=== PATIENT | male | born 1960 | race Caucasian/White ===

== ENCOUNTER 2017-03-08 07:22 | Emergency (ER) | payer BC ==
--- NOTE | ~2017-03-08 | ER ---
PATIENT'S NAME: BERT GUERRA [facility] AGE: 57 Y [address] ROOM: [place] [id number] LOCATION: [facility] ADMIT DATE: 03/08/2017 ER/Outpatient Report DISCHARGE DATE: 03/08/2017 FAMILY PHYSICIAN: PHYSICIAN, NO ATTENDING PHYSICIAN: Jennifer Angelo Admission date and time documented on the medical record. I saw the patient at 0735 hours. CHIEF COMPLAINT: Stress, intermittent episodes of chest tightness. HISTORY OF PRESENT ILLNESS: This patient is a 57-year-old male from [place], traveling to [place] by ground with his son. He has been really stressed at work and with his family. His diagnosed with a brain tumor. He is little bit over senior living to his destination and he is going to fly back to [place] on Thursday of this coming week. Yesterday, while driving, he had three episodes of tingling in his arms, cold sweats, and then chest tightness. These episodes lasted a couple minutes and went away. He had an episode again this morning with cold sweat, tingling down his arms and mid to lower substernal chest tightness. He had no nausea or vomiting. No shortness of breath. No lightheadedness or dizziness. The patient states that these times he is getting overwhelmed with stress and anxiety, almost brings himself to tears. He also gets some frontal facial fullness. The patient has had no previous history of known coronary artery disease, pulmonary disease, valvular heart disease, and congestive failure. Does have a history of hypertension. He has had some episodes in the past. He has been stressed and had similar symptoms. He has a family history of valvular heart disease, but no coronary artery disease. His father had a valve replacement. Also, has diabetes mellitus type 2. No recent coughs, colds, flus, fever, chills, or sweats. No fall or trauma. No syncope. No abdominal pain, nausea, vomiting, diarrhea, or urinary frequency, urgency, or dysuria. No joint muscle swelling, redness, or pain. No skin eruptions or rash. No history of neuro changes, psych issues, or endocrine problems, other than the stress and anxiety from situational changes in his life. HOME MEDICATIONS: See attached medication list. ALLERGIES: NONE. SOCIAL HISTORY: Nonsmoker. Occasional intake of alcohol. PATIENT'S NAME: BERT GUERRA [facility] AGE: 57 Y [address] ROOM: [place], [place] [address] LOCATION: [facility] ADMIT DATE: 03/08/2017 ER/Outpatient Report DISCHARGE DATE: 03/08/2017 FAMILY PHYSICIAN: PHYSICIAN, NO ATTENDING PHYSICIAN: Jennifer Angelo SIGNIFICANT PAST MEDICAL HISTORY: Hypertension, stress, and anxiety. OPERATIONS: Appendectomy. REVIEW OF SYSTEMS: All systems reviewed by me are negative with the exception of those discussed in the history of present illness. PHYSICAL EXAMINATION: VITAL SIGNS: Pulse 67 and regular, respirations 18, blood pressure 158/93, O2 saturation on room air 97%. HEAD: Normocephalic. EYES: Extraocular muscles intact. PERRL. EARS, NOSE, THROAT: Clear. Mucous membranes moist. NECK: No nuchal rigidity. No thyromegaly or cervical adenopathy. LUNGS: Clear. Good air flow. No rales, rhonchi, or wheezes. HEART: Regular. Pulses are palpable. No chest wall or ribcage pain to palpation. ABDOMEN: Soft, nondistended, nontender. Good bowel tones. No organomegaly or abnormal mass palpable. No CVA tenderness. EXTREMITIES: Intact. NEUROVASCULAR: Intact. SKIN: Clear. No skin eruptions or rash. EMERGENCY DEPARTMENT COURSE: I did give the patient 4 baby aspirin and started an IV saline lock. EKG showed sinus rhythm. No acute ST elevation, ischemic change, or arrhythmia. Chest x-ray showed no acute infiltrate or changes. We will review x-ray with the radiologist. White count was 8,400, 72 segs, 18 lymphs, 8 monos, 1 eo, 1 baso. Hemoglobin is 14.7, hematocrit 40.9, platelet count is 286,000. CMS was normal except for a slightly low sodium 133, low potassium of 2.9, elevated glucose 117, magnesium was 2.1. CPK was 60. Uawad-nz-buti cardiac enzymes were normal. Pro-time is 10.6 with an INR 1.01. PTT was 29. IMPRESSION: 1. Transient episodes of cold sweats, numbness and tingling in his arms, followed by mid low substernal chest tightness. These episodes lasted a couple minutes then resolved. I find no evidence of cardiac changes on his workup. He does admit that he is under lot of stress at his work and in his home with his having a brain tumor, just diagnosed. I think that this all is related to stress and anxiety. PATIENT'S NAME: BERT GUERRA [facility] AGE: 57 Y [address] ROOM: [place] [address] LOCATION: [facility] ADMIT DATE: 03/08/2017 ER/Outpatient Report DISCHARGE DATE: 03/08/2017 FAMILY PHYSICIAN: PHYSICIAN, NO ATTENDING PHYSICIAN: Jennifer Angelo PLAN: I did discuss my findings and recommendations with the patient. I did encourage him to get a cardiac stress test when he gets back home. Did give him 40 mEq potassium orally here in the emergency department. Dismissed home. Observation. Activity as tolerated. Good hydration. Balanced diet. Continue present home medications and care. K-Dur 20 mEq daily for 7 days. Ativan 1 mg 3 times a day as needed for anxiety, #10. Follow up with personal physician when he gets back home and again I encouraged him to get scheduled for a stress test for complete examination. The patient understands and agrees with treatment plan. JENNIFER ANGELO MD SDS/modl /[id number] d: 03/08/17 1326 t: 03/09/17 0651, OUTPATIENT REPORT
[2017-03-08 07:50] LABS: BASOPHIL # 0.1 K/uL (0.0-0.2); BASOPHIL % 0.6 %; EOSINOPHIL # 0.1 K/uL (0.0-0.5); HEMATOCRIT 40.9 % (37.0-53.0); HEMOGLOBIN 14.7 g/dL (12.0-17.0); IMMATURE GRANULOCYTE % 0.2 %; LYMPHOCYTE # 1.5 K/uL (0.8-4.0); LYMPHOCYTE % 17.9 %; MCH 28.9 pg (27.0-34.0); MCHC 35.9 gm/dL (32.0-36.5); MCV 80.5 fl (83.0-98.0); MONOCYTE # 0.7 K/uL (0.0-1.0); NEUTROPHIL % 72.3 %; NRBC % 0 /100WBC (0-0.00); PLATELET COUNT 286 K/uL (150-450); RBC 5.08 M/uL (4.00-6.00); RDW-CV 12.2 % (11.9-14.6); WBC 8.4 K/uL (4.0-11.0)
[2017-03-08 07:59] LABS: INR - (THERAPEUTIC) 1.01 (0.92-1.07); PROTIME 10.6 SECONDS (9.8-11.4); PTT 29 SECONDS (25-32)
[2017-03-08 08:09] LABS: ALBUMIN 3.7 gm/dL (3.5-5.0); ALK PHOS 48 IU/L (33-138); ALT 28 IU/L (12-78); AST 15 IU/L (10-40); BLOOD UREA NITROGEN 8 mg/dL (6-24); CALCIUM 8.7 mg/dL (8.5-10.5); CHLORIDE 98 mMol/L (96-110); CO2 24 mMol/L (22-32); CPK 60 IU/L (35-332); ESTIMATED GFR (MDRD EQUATION) > 60; MAGNESIUM 2.1 mg/dL (1.8-2.6); SODIUM 133 mMol/L (135-145); TOTAL BILIRUBIN 0.8 mg/dL (0.0-1.5); TOTAL PROTEIN 6.6 g/dL (6.0-8.4)
[2017-03-08 08:11] LABS: ANION GAP 13.9 (10.0-19.0); POTASSIUM 2.9 mMol/L (3.7-5.1)
== END 2017-03-08 08:49 | disposition disaster alternative care site (69) ==
LOC: GMED 07:22
PROVIDERS: Emergency Medicine
DX: R07.89 Other chest pain (principal); I10 Essential (primary) hypertension; F43.9 Reaction to severe stress, unspecified; E11.9 Type 2 diabetes mellitus without complications; F41.9 Anxiety disorder, unspecified; Z86.79 Personal history of other diseases of the circulatory system; Z90.89 Acquired absence of other organs